=== PATIENT | male | born 1940 | race Asian ===

== ENCOUNTER 2019-02-19 14:10 | Emergency (ER) | payer OTHER ==
[~2019-02-19] VITALS: Ht 162.6 cm; Wt 68.0 kg
[2019-02-19] MEDS ORDERED: TERA2CAP4 PO (14:27)
[2019-02-19] MEDS ORDERED: HYDR-3326 PO (14:27)
[2019-02-19] MEDS ORDERED: LOSA50TA39 PO (14:27)
[2019-02-19] MEDS ORDERED: FEBU40TA PO (14:27)
[2019-02-19] MEDS ORDERED: ZINC220C8 PO (14:27)
[2019-02-19] MEDS ORDERED: FAMO20TA8 PO (14:27)
[2019-02-19] MEDS ORDERED: AMLO5TAB9 PO (14:27)
[2019-02-19] MEDS ORDERED: ASCO500P18 PO (14:27)
[2019-02-19] MEDS ORDERED: FURO-152 PO (14:27)
[2019-02-19] MEDS ORDERED: ATEN50TA PO (14:27)
[2019-02-19] MEDS ORDERED: IV NORMAL SALINE 1000 ML BAG IV ONE (14:45)
[2019-02-19 14:58] LABS: BASOPHILS # (AUTO) 0.1 K/uL (0.0-8.0); BASOPHILS % (AUTO) 1.1 % (0.0-2.0); EOSINOPHILS # (AUTO) 0.7 K/uL (0.0-0.7); EOSINOPHILS % (AUTO) 6.7 % (0.0-7.0); HEMATOCRIT 41.3 % (36.7-47.1); HEMOGLOBIN 12.9 g/dL (12.5-16.3); LYMPHOCYTES # (AUTO) 2.8 K/uL (20.0-40.0); LYMPHOCYTES % (AUTO) 27.7 % (20.5-51.5); MEAN CORPUSCULAR HEMOGLOBIN 28.1 uug (23.8-33.4); MEAN CORPUSCULAR HGB CONC 31 g/dL (32.5-36.3); MEAN CORPUSCULAR VOLUME 89.8 fL (73.0-96.2); MONOCYTES # (AUTO) 0.9 K/uL (2.0-10.0); MONOCYTES % (AUTO) 9.2 % (0.0-11.0); NEUTROPHILS # (AUTO) 5.6 K/uL (1.8-8.9); NEUTROPHILS % (AUTO) 55.3 % (38.5-71.5); PLATELET COUNT (AUTO) 181 K/uL (152-348); WHITE BLOOD COUNT (AUTO) 10.1 K/uL (3.6-10.2)
[2019-02-19 15:04] LABS: CARBON DIOXIDE 24 mmol/L (21-32); CREATININE 3.9 mg/dL (0.6-1.3); GLUCOSE 121 mg/dL (74-106); POTASSIUM 4.8 mmol/L (3.5-5.1); UREA NITROGEN, BLOOD 63 mg/dL (7-18)
[2019-02-19 15:08] LABS: CHLORIDE 131 mmol/L (98-107)
[2019-02-19 15:13] LABS: *BILIRUBIN,URIN 1+ (NEGATIVE); *CLARITY,URINE SLIGHTLY CLOUDY (CLEAR); *COLOR,URINE YELLOW (YELLOW); *KETONES,URINE NEGATIVE (NEGATIVE); *UROBILINOGEN,URINE 0.2 E.U./dl (NORMAL); LEUKOCYTE ESTERASE ,URINE NEGATIVE (NEGATIVE); NITRITE, URINE NEGATIVE (NEGATIVE); UGLUCOSE NEGATIVE (NEGATIVE)
[2019-02-19 15:17] LABS: *BLOOD, URINE TRACE (NEGATIVE)
[2019-02-19] MEDS ORDERED: IV 1/2NS 1000 ML 1,000 ML IV ONE (15:17)
[2019-02-19 15:20] LABS: ALANINE AMINOTRANSFERASE 14 U/L (16-63); ALKALINE PHOSPHATASE 101 U/L (50-136); ASPARTATE AMINOTRANSFERASE 23 U/L (15-37); BILIRUBIN,DIRECT 0.3 mg/dL (0.0-0.2); BILIRUBIN,TOTAL 0.8 mg/dL (0.2-1.0); TOTAL PROTEIN, SERUM 7.6 g/dL (6.4-8.2)
[2019-02-19 15:21] LABS: ACETAMINOPHEN < 2.0 ug/mL (10-30)
[2019-02-19 15:23] LABS: BACTERIA,URINE FEW /HPF (NONE SEEN); RBC,URINE 0-3 /HPF (0-3); SQUAMOUS EPITHELIAL CELL,UR FEW /HPF (NONE SEEN); WBC,URINE 0-3 /HPF (0-3)
[2019-02-19 15:24] LABS: URINE AMORPHOUS URATE MODERATE /HPF
[2019-02-19] MEDS ORDERED: FUROSEMIDE 40 MG/4 ML VIAL ONE (15:25)
[2019-02-19 15:26] LABS: ETHANOL < 3 MG/DL (0-0)
[2019-02-19 15:28] LABS: *AMPHETAMINE, URINE NEGATIVE (NEGATIVE); *BARBITURATE, URINE NEGATIVE (NEGATIVE); *CANNABINOID, URINE NEGATIVE (NEGATIVE); *COCCAINE, URINE NEGATIVE (NEGATIVE); *OPIATE, URINE POSITIVE (NEGATIVE); *PHENCYCLIDINE SCREEN,URINE NEGATIVE (NEGATIVE)
[2019-02-19] MEDS ORDERED: FUROSEMIDE 40 MG/4 ML VIAL IV ONE (15:30)
[2019-02-19 15:33] LABS: THYROID STIMULATING HORMONE 2.053 mIU/mL (0.358-3.740)
--- NOTE | 2019-02-19 15:35 | NUR ---
Patient's insurance is [employer] per ER registration staff Nelida.
--- NOTE | 2019-02-19 15:43 | NUR ---
[facility] CALLED, THE REQUESTED INFO PROVIDED.
--- NOTE | 2019-02-19 16:30 | NUR ---
Per he spoke with from [facility] and pt to be trans to [facility] via critical care transport, [facility] to call back with further information.
--- NOTE | 2019-02-19 17:12 | NUR ---
No acute change in condition seen, [email or web address]
--- NOTE | 2019-02-19 18:06 | NUR ---
Patient Tranfers to outside Facility: [facility] room 4106-A Physician:Suellen Location:[address] [place], [place] [address]-A RN: Beryl CCT/RN ambulance YOK=[phone]
--- NOTE | 2019-02-19 19:22 | NUR ---
still for transfer, pending [place] arranged ambulance-CCT/RN, endorsed to JATINDER terry
--- NOTE | 2019-02-19 19:29 | NUR ---
received care for patient awaiting transport to [facility] management specialist in [facility]ib.
[2019-02-19] MEDS ORDERED: ACETAMINOPHEN 650 MG SUPP.RECT RC ONE ×2 (19:45→19:52)
--- NOTE | 2019-02-19 20:13 | NUR ---
transport here to take patient, Temp.102.1 tylenolPR [id number]. given copy of transfer record [id number] rr 28 02 sat 97 [id number]
== END 2019-02-19 20:29 | disposition short-term general hospital (02) ==
LOC: ER 14:19
DX: R41.82 Altered mental status, unspecified (principal); I95.9 Hypotension, unspecified; E87.0 Hyperosmolality and hypernatremia; I48.91 Unspecified atrial fibrillation; I50.9 Heart failure, unspecified; Z88.2 Allergy status to sulfonamides; Z88.8 Allergy status to other drugs, medicaments and biological substances; Z79.899 Other long term (current) drug therapy
CPT/HCPCS: 36415; 70450; 71045; 80048; 80076; 80307; 81000; 81001; 82140; 83605; 84443; 84484; 85025; 85730; 87040; 87086; 93005; 96361 ×2; 96374; 99285; G0480 ×2; G0481; J1940; J3490 ×2; 70030-TC; A4663; J7030